=== PATIENT | male | born 1965 | race American Indian/Alaskan Native ===

== ENCOUNTER 2018-05-16 07:06 | Emergency (ER) | payer OTHER ==
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
[2018-05-16 08:54] VITALS: BP 118/70
== END 2018-05-16 08:53 | disposition home or self-care (01) ==
LOC: ED 07:06
DX: S16.1XXA Strain of muscle, fascia and tendon at neck level, initial encounter (principal); S39.012A Strain of muscle, fascia and tendon of lower back, initial encounter; V89.2XXA Person injured in unspecified motor-vehicle accident, traffic, initial encounter; Y93.89 Activity, other specified; Y92.89 Other specified places as the place of occurrence of the external cause; Y99.8 Other external cause status
CPT/HCPCS: 99282

== ENCOUNTER 2022-03-22 18:29 | Emergency (ER) | payer SELFPAY ==
[2022-03-23 03:11] VITALS: BP 127/83
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
--- NOTE | 2022-03-23 03:29 | XRay Report ---
LEFT HUMERUS 2 VIEW(S) INDICATION / CLINICAL INFORMATION: arm pain COMPARISON: None available. FINDINGS: BONES / JOINT(S): No acute fracture or subluxation. No significant arthritis. SOFT TISSUES: No significant abnormality. ADDITIONAL FINDINGS: None. Signer Name: Matt Jones DO Signed: 03/23/2022 3:25 AM Workstation Name: [id number]
== END 2022-03-23 03:12 | disposition home or self-care (01) ==
LOC: ED 18:29
DX: S40.022A Contusion of left upper arm, initial encounter (principal); X58.XXXA Exposure to other specified factors, initial encounter; F10.20 Alcohol dependence, uncomplicated; Y93.89 Activity, other specified; Y92.89 Other specified places as the place of occurrence of the external cause; Y99.8 Other external cause status
CPT/HCPCS: 99283